=== PATIENT | male | born 1975 | race Caucasian/White ===

== ENCOUNTER 2020-09-28 17:32 | Emergency (ER) | payer SELFPAY ==
[~2020-09-28] VITALS: Ht 160 cm; Wt 68.0 kg
[2020-09-28] MEDS ORDERED: LIDOCAINE HCL 2% 20 ML VIAL ONE (17:46)
[2020-09-28] MEDS ORDERED: LIDOCAINE HCL 2% 20 ML VIAL TP ONE (18:00)
[2020-09-28] MEDS ORDERED: TDAP DIPH,PERTUSS,TET VAC/PF 0.5 ML DISP.SYRIN IM ONE ×2 (18:00→18:13)
[2020-09-28] MEDS ORDERED: NEOMY/BACITRA/POLYMYXIN B OINT UD PACKET TP ONE (18:26)
--- NOTE | 2020-09-28 18:29 | NUR ---
Patient discharged to home in stable condition. Written and verbal after care instructions given. Patient verbalizes understanding of instructions. Stressed follow up or return to ER for worsening s/s.
== END 2020-09-28 18:30 | disposition home or self-care (01) ==
LOC: ER 17:32
DX: S61.217A Laceration without foreign body of left little finger without damage to nail, initial encounter (principal); V43.42XA Person boarding or alighting a car injured in collision with other type car, initial encounter; Y92.89 Other specified places as the place of occurrence of the external cause; Z87.81 Personal history of (healed) traumatic fracture
CPT/HCPCS: 12002; 73130; 90471; 90715; 99283; J3490; A4217